=== PATIENT | male | born 1990 | race Caucasian/White ===

== ENCOUNTER → 2018-01-02 | Outpatient (CLI) | payer OTHER | LOC: COL.RAD 12:29 | DX: M21.822 Other specified acquired deformities of left upper arm (principal); S43.492A Other sprain of left shoulder joint, initial encounter | CPT/HCPCS: A9585; Q9967 ==

== ENCOUNTER 2018-01-23 12:08 | Day surgery (SDC) | payer SELFPAY ==
[~2018-01-23] VITALS: Ht 185.4 cm; Wt 76.8 kg
[2018-01-23] MEDS ORDERED: PRILOSEC 20MG20 MG PO (12:47)
[2018-01-23 14:43] VITALS: BP 119/70; PULSE 62; TEMP 97.9
[2018-01-23 17:15] VITALS: BP 127/78; PULSE 89; TEMP 97.8
[2018-01-23 17:30] VITALS: BP 121/78; PULSE 86
[2018-01-23] MEDS ORDERED: PERCOCET 325 MG1 TA2 PO (17:32)
[2018-01-23] MEDS ORDERED: MOBIC15 MG PO (17:33)
[2018-01-23] MEDS ORDERED: COLACE 100100 MG/CAP PO (17:34)
[2018-01-23] MEDS ORDERED: ZOFRAN 4MG T4 MG/TAB PO (17:34)
[2018-01-23 17:45] VITALS: BP 124/78; PULSE 86
[2018-01-23 18:00] VITALS: BP 124/74; PULSE 85
== END 2018-01-23 18:25 | disposition home or self-care (01) ==
LOC: SDCO 12:08
DX: M25.312 Other instability, left shoulder (principal); K21.9 Gastro-esophageal reflux disease without esophagitis; G89.18 Other acute postprocedural pain
CPT/HCPCS: C1713; J0171; J0690; J1100; J1885; J2250; J2405; J2704; J3010; J7120